=== PATIENT | female | born 1965 | race Caucasian/White ===

== ENCOUNTER 2017-11-17 17:28 | Emergency (ER) | payer BC, OTHER ==
[~2017-11-17] VITALS: Ht 172.7 cm; Wt 86.6 kg
[~2017-11-17 17:28] MED LIST: ACETAMIN W/CODE1 TA1 PO; AMBIEN12.5 M1 PO; AMITRIPTYLINE H50 MG PO; BUT/APAP/CAFF/C1 CAP PO; CARISOPRODOL350 MG PO; CLONAZEPAM2 MG PO; CYMBALTA20 M1 PO; EC NAPROSYN500 MG PO; EFFEXOR-XR75 MG PO; FIORICET1 TAB PO; FLE10 PO; FLONS NS; INVANZ1 GM IV; LYRICA75 M1 PO; NEU300 PO; OMEPRAZOLE40 M1 PO; PRAVACHOL20 MG PO; PRILOSEC40 MG PO; PYRIDIUM200 MG PO; SOMA350 MG PO; SUMATRIPTAN SUC50 M1 PO; TEMAZEPAM30 MG PO; TOPAMAX100 MG PO; TOPAMAX50 M1 PO; TYLENOL ARTHRI650 MG PO; TYLENOL WITH CO1 TA3 PO
[2017-11-17 17:40] VITALS: Ht 172.7 cm; Wt 86.6 kg
[2017-11-17 18:43] LABS: BASOPHIL % 0.3 % (0-2); PLATELET COUNT 210 x10^3mcL (130-400); RED CELL DISTRIBUTION WIDTH 13.2 % (11.5-14.5)
[2017-11-17 18:58] LABS: CARBON DIOXIDE 23.2 mmol/L (21-32); CHLORIDE SERUM 109 mmol/L (98-107); CREATININE SERUM 0.8 mg/dL (0.6-1.0); GFR1 > 60 mL/min; GLUCOSE SERUM 93 mg/dL (74-106); POTASSIUM SERUM 3.8 mmol/L (3.5-5.1); SODIUM SERUM 141 mmol/L (136-145)
[2017-11-17 19:07] LABS: CK-MB < 0.5 ng/mL (0-3.6); CREATINE KINASE 68 U/L (26-192)
[2017-11-17 19:09] LABS: T3 TOTAL 1.11 ng/mL
[2017-11-17 19:24] LABS: ERYTHROCYTE SED RATE 8 mm/hr (0-30)
[2017-11-17 19:39] LABS: ALBUMIN 3.8 g/dL (3.4-5.0); ALKALINE PHOSPHATASE 133 U/L (46-116); ALT/SGPT 23 U/L (14-59); BILIRUBIN TOTAL 0.3 mg/dL (0.20-1.00); C REACTIVE PROTEIN 2.6 mg/dL (<=0.9); T4(THYROXINE) 5.8 ug/dL (4.7-13.3); TOTAL PROTEIN, SERUM 7.3 g/dL (6.4-8.2)
[2017-11-17 19:40] LABS: AST/SGOT 13 U/L (15-37)
[2017-11-17 19:52] LABS: FREE T4 0.78 ng/dL (0.76-1.46)
[2017-11-17 20:26] VITALS: BP 120/79
== END 2017-11-17 20:26 | disposition home or self-care (01) ==
LOC: ED 17:28
PROVIDERS: Specialist
DX: J45.901 Unspecified asthma with (acute) exacerbation (principal); G43.009 Migraine without aura, not intractable, without status migrainosus; E78.00 Pure hypercholesterolemia, unspecified; Z88.0 Allergy status to penicillin
CPT/HCPCS: 36600; 83880; 84439; J0780; J1885; J2930; J3010; J7613; J7644; Q0092